=== PATIENT | male | born 1945 | race African-American/Black ===

== ENCOUNTER 2021-05-26 11:44 | Emergency (ER) | payer MEDICARE, MEDICAID ==
[~2021-05-26] VITALS: Ht 172.7 cm; Wt 110.0 kg
[2021-05-26 15:57] VITALS: BP 145/70
[2021-05-26] MEDS ORDERED: T3 PO (17:43)
[2021-05-26] MEDS ORDERED: IBUP-2029 MT (17:45)
[2021-05-26] MEDS ORDERED: HYDROCODONE/ACETAMINOPHEN 5/325MG TABLET PO ONE (18:15)
== END 2021-05-26 18:16 | disposition home or self-care (01) ==
LOC: ER 11:44
DX: S42.292A Other displaced fracture of upper end of left humerus, initial encounter for closed fracture (principal); W01.0XXA Fall on same level from slipping, tripping and stumbling without subsequent striking against object, initial encounter; Y93.89 Activity, other specified; Y92.018 Other place in single-family (private) house as the place of occurrence of the external cause
CPT/HCPCS: 73030; 73080; 99284; A4565